=== PATIENT | female | born 1970 | race Caucasian/White ===

== ENCOUNTER → 2023-11-14 | Outpatient (CLI) | payer OTHER ==
[~2023-11-14] MED LIST: CELEXA40 MG PO; COGENTIN .0.5 MG/TAB PO; ELAVIL100 MG PO; GLUCOTROL 5M5 MG/TAB PO; HYDRODIURIL50 MG PO; KENALOG DENTAL P5 GM DT; KLOR-CON M2020 MEQ PO; LIPITOR20 MG PO; LYRICA 150MG C150 MG PO; MOBIC15 MG PO; MS CONTIN 330 MG/TAB PO; PROTONIX 40MG T40 MG PO; RISPERDAL4 MG PO; ROXICODONE 55 MG/TAB PO; TOPAMAX200 MG PO; VITAMIN D31000 I1 PO
== END ==
LOC: MHCPAIN 13:22
DX: M79.18 Myalgia, other site (principal); M54.6 Pain in thoracic spine; M54.2 Cervicalgia
CPT/HCPCS: J0665; J1040